=== PATIENT | female | born 1995 | race Caucasian/White ===

== ENCOUNTER → 2016-10-10 00:28 | Emergency (ER) | payer OTHER ==
[~2016-10-10 00:28] MED LIST: NS 0.9% 1000 ML* 1,000 ML IV ONE
[2016-10-10 02:24] LABS: Hematocrit 38 % (35-47); Mean Corpuscular HGB Conc 35 g/dl (31-36); Mean Corpuscular Hemoglobin 29 pg (27-31); Mean Corpuscular Volume 85 fL (80-97); Mean Platelet Volume 7 um3 (7.4-10.4); Red Blood Count 4.45 10^6/ul (4.0-5.4); Red Cell Distribution Width 13 % (10.5-15); White Blood Count 7.9 10^3/ul (3.5-10.8)
[2016-10-10 02:38] LABS: BUN/Creatinine Ratio 26.6 (8-20); Calcium 9.4 mg/dL (8.6-10.3); EGFR African American 149.2 (>60); Globulin 3.1 g/dL (2-4); Magnesium 2.1 mg/dL (1.9-2.7); Potassium 3.7 mmol/L (3.5-5.0); Total Bilirubin 0.4 mg/dL (0.2-1.0); Total Protein 7.1 g/dL (6.4-8.9)
[2016-10-10 02:53] LABS: TSH (Thyroid Stimulating Horm) 6.01 mcIU/mL (0.34-5.60)
--- NOTE | 2016-10-10 03:09 | ED ---
Syncope/Near Syncope - HPI Summary HPI Summary: 20F presents with syncopal episode. She took her night time medication and went to get some food and had a quick syncopal episode. She did start a new medication recently. [place]. She did have normal appetite today. Denies any chest pain or SOB. according to caregiver is acting appropriately. no lightheadedness now. no history of syncope. does not know fam hx as is adopted. - History Of Current Complaint Chief Complaint: EDSyncope Time Seen by Provider: 10/10/16 01:12 - Allergies/Home Medications Allergies/Adverse Reactions: Allergies Allergy/AdvReac Type Severity Reaction Status Date / Time No Known Allergies Allergy Verified 10/10/16 00:33 PMH/Surg Hx/FS Hx/Imm Hx Endocrine/Hematology History: Denies: Hx Diabetes Cardiovascular History: Denies: Hx Congestive Heart Failure, Hx Hypertension History: Denies: Hx Renal Disease Infectious Disease History: No Infectious Disease History: Denies: Traveled Outside the [place] in Last 30 Days - Family History Known Family History: Positive: Unknown - Social History Alcohol Use: None Substance Use Type: Reports: None Smoking Status (MU): Never Smoked Tobacco Review of Systems Negative: Fever Negative: Chest Pain Negative: Shortness Of Breath Positive: Syncope All Other Systems Reviewed And Are Negative: Yes Physical Exam Triage Information Reviewed: Yes Vital Signs On Initial Exam: Initial Vitals Temp Pulse Resp BP Pulse Ox 98.2 F 96 16 147/81 99 10/10/16 00:30 10/10/16 00:30 10/10/16 00:30 10/10/16 00:30 10/10/16 00:30 Vital Signs Reviewed: Yes Appearance: Positive: Well-Appearing Skin: Positive: Warm, Dry Head/Face: Positive: Normal Head/Face Inspection Eyes: Positive: Normal, EOMI, SVETLANA, Conjunctiva Clear ENT: Positive: Normal ENT inspection, Pharynx normal, TMs normal Respiratory/Lung Sounds: Positive: Clear to Auscultation, Breath Sounds Present Cardiovascular: Positive: Normal, RRR Neurological: Positive: Sensory/Motor Intact, Alert, Oriented to Person Place, Time, CN Intact II-III - Taylor Coma Scale Coma Scale Total: 15 Diagnostics - Vital Signs Vital Signs Temp Pulse Resp BP Pulse Ox 10/10/16 02:30 94 135/62 96 10/10/16 02:00 99 97 10/10/16 01:30 102 134/74 97 10/10/16 01:00 98 134/69 97 10/10/16 00:36 99 97 10/10/16 00:35 139/84 10/10/16 00:33 98.8 F 104 19 151/82 97 10/10/16 00:30 98.2 F 96 16 147/81 99 - Laboratory Lab Results: Lab Results 10/10/16 10/10/16 Range/Units 02:11 02:11 WBC 7.9 (3.5-10.8) 10^3/ul RBC 4.45 (4.0-5.4) 10^6/ul Hgb 13.0 (12.0-16.0) g/dl Hct 38 (35-47) % MCV 85 (80-97) fL MCH 29 (27-31) pg MCHC 35 (31-36) g/dl RDW 13 (10.5-15) % Plt Count 212 (150-450) 10^3/ul MPV 7 L (7.4-10.4) um3 Neut % (Auto) 68.6 (38-83) % Lymph % (Auto) 24.6 L (25-47) % T[place] % (Auto) 5.1 (1-9) % Eos % (Auto) 1.1 (0-6) % Baso % (Auto) 0.6 (0-2) % Absolute Neuts (auto) 5.4 (1.5-7.7) 10^3/ul Absolute Lymphs (auto) 2.0 (1.0-4.8) 10^3/ul Absolute Monos (auto) 0.4 (0-0.8) 10^3/ul Absolute Eos (auto) 0.1 (0-0.6) 10^3/ul Absolute Basos (auto) 0 (0-0.2) 10^3/ul Absolute Nucleated RBC 0 10^3/ul Nucleated RBC % 0 Sodium 133 (133-145) mmol/L Potassium 3.7 (3.5-5.0) mmol/L Chloride 103 (101-111) mmol/L Carbon Dioxide 24 (22-32) mmol/L Anion Gap 6 (2-11) mmol/L BUN 17 (6-24) mg/dL Creatinine 0.64 (0.51-0.95) mg/dL Est GFR ( Amer) 149.2 (>60) Est GFR (Non-Af Amer) 116.0 (>60) BUN/Creatinine Ratio 26.6 H (8-20) Glucose 90 (70-100) mg/dL Calcium 9.4 (8.6-10.3) mg/dL Magnesium 2.1 (1.9-2.7) mg/dL Total Bilirubin 0.40 (0.2-1.0) mg/dL AST 11 L (13-39) U/L ALT 10 (7-52) U/L Alkaline Phosphatase 39 (34-104) U/L Troponin I 0.00 (<0.04) ng/mL Total Protein 7.1 (6.4-8.9) g/dL Albumin 4.0 (3.2-5.2) g/dL Globulin 3.1 (2-4) g/dL Albumin/Globulin Ratio 1.3 (1-3) TSH 6.01 H (0.34-5.60) mcIU/mL Result Diagrams: 10/10/16 02:11 10/10/16 02:11 Lab Statement: Any lab studies that have been ordered have been reviewed, and results considered in the medical decision making process. - EKG No standard instances Cardiac Rate: NL EKG Rhythm: Sinus Rhythm ST Segment: Normal Course/Dx Course Of Treatment: 20F presents with syncopal episode. She took her night time medication and went to get some food and had a quick syncopal episode. She did start a new medication recently. [place] and [place]. She did have normal appetite today. Denies any chest pain or SOB. according to caregiver is acting appropriately. no lightheadedness now. no history of syncope. does not know fam hx as is adopted. on exam normal neuro exam. labs normal except TSH elevated. sent for T4 and will have follow up with PCP. patient caregiver understands and agrees with plan. - Diagnoses Differential Diagnosis/HQI/PQRI: Positive: Hypoglycemia, Hypovolemia, Vasovagal Episode Provider Diagnoses: Syncope, Elevated TSH Discharge - Discharge Plan Condition: Good Disposition: HOME Patient Education Materials: Syncope (ED) Referrals: Shahram Ramirez MD [Primary Care Provider] - Additional Instructions: Follow up with primary within 5 days about syncope and elevated TSH drink plenty of fluids and eat a balanced diet Return to ED if develop any new or worsening symptoms
[2016-10-10 03:35] VITALS: BP 133/76
[2016-10-10 03:52] LABS: Free T4 0.99 ng/dL (0.61-1.12)
== END | disposition home or self-care (01) ==
LOC: ED 00:28
DX: R55 Syncope and collapse (principal); R94.6 Abnormal results of thyroid function studies
CPT/HCPCS: 36415; 80053; 83735; 84439; 84443; 84484; 85025; 93005; 96360; 99282